=== PATIENT | female | born 1930 | race Caucasian/White ===

== ENCOUNTER 2017-05-24 11:23 | Emergency (ER) | payer MEDICARE, OTHER ==
--- NOTE | 2017-05-24 11:51 | ERPHSYRPT ---
- History of Present Illness Allergies/Adverse Reactions: influenza A (H1N1) virus vaccine m- [From influenza A (H1N1)] Allergy (Verified 01/20/15 13:57) influenza virus vaccine, specific [influenza virus vacc,specific] Allergy ( Verified 01/20/15 13:57) Home Medications: Glipizide 10 mg PO DAILY 03/21/14 [History] Simvastatin 40 mg [Zocor 40 mg] 40 mg PO DAILY 03/21/14 [History] Sitagliptin Phosphate [Januvia] 100 mg PO DAILY 03/21/14 [History] Aspirin 81 mg PO DAILY 01/20/15 [History] Benazepril HCl 20 mg PO DAILY 01/20/15 [History] Insulin Glargine [Lantus Insulin] 16 units SQ HS 01/20/15 [History] Isosorbide Mononitrate 30 mg [Imdur 30 MG] 30 mg PO DAILY 01/20/15 [History ] Metoprolol Succinate 25 mg Xl* [Toprol-Xl 25MG Tablets] 25 mg PO DAILY [History] Hx Tetanus, Diphtheria Vaccination/Date Given: No Hx Influenza Vaccination/Date Given: No Hx Pneumococcal Vaccination/Date Given: Yes - Past Medical History Pertinent Past Medical History: Yes Neurological History: No Pertinent History ENT History: No Pertinent History Cardiac History: Hypertension Respiratory History: No Pertinent History Endocrine Medical History: Diabetes Type II Musculoskeletal History: No Pertinent History GI Medical History: No Pertinent History History: No Pertinent History Psycho-Social History: No Pertinent History Female Reproductive Disorders: No Pertinent History - Past Surgical History Past Surgical History: Yes Neuro Surgical History: No Pertinent History Cardiac: No Pertinent History Respiratory: No Pertinent History Gastrointestinal: No Pertinent History Genitourinary: No Pertinent History Musculoskeletal: No Pertinent History Female Surgical History: Tubal Ligation - Social History Smoking Status: Former smoker Exposure to second hand smoke: No Drug Use: none Patient Lives Alone: No - Departure Referrals: TOMAS LICONA [Primary Care Provider] -
--- NOTE | 2017-05-24 11:58 | ERPHSYRPT ---
- History of Present Illness Time Seen by Provider: 05/24/17 11:53 Source: patient, family Exam Limitations: no limitations Patient Subjective Stated Complaint: pt here for lower back pain for 4 weeks worse today while rolling over in bed, has fallen twice in that time, she states she looses her balance. she does not use a cane or walker Triage Nursing Assessment: pt alert, arrives per wc, has redness to lower back, and brown/yellow bruising to right arm and left rib area, pt able to undress self with assistance Physician History: The patient is an 87-year-old female with her daughter complaining that she hurt her back 4 weeks ago while lifting up from a bent over position. The back hasn't been getting very much better over the last 4 weeks. For the last few days her back is been getting worse. Today she rolled over in bed and her low back was very painful. She has been having a hard time walking. She would not even walk to her daughter's house next door because of the pain. Walking to her daughter's house was something she used to be able to do without problems. She has fallen twice recently. She hasn't been eating as much is in the past. The daughter says that the patient is getting a little weaker. She denies any loss of in bowel or bladder. At times she will have pain shooting down the back of her right leg. She denies numbness or tingling. Her past medical history is significant for diabetes, hypertension, high cholesterol, chronic back pain, and sciatica. Timing/Duration: week(s) (4) Severity: severe Modifying Factors: Improves With: nothing Associated Symptoms: loss of appetite, weakness Allergies/Adverse Reactions: influenza A (H1N1) virus vaccine m- [From influenza A (H1N1)] Allergy (Verified 05/24/17 11:43) influenza virus vaccine, specific [influenza virus vacc,specific] Allergy ( Verified 05/24/17 11:43) Home Medications: Glipizide 10 mg PO DAILY 03/21/14 [History] Simvastatin 40 mg [Zocor 40 mg] 40 mg PO DAILY 03/21/14 [History] Aspirin 81 mg PO DAILY 01/20/15 [History] Benazepril HCl 20 mg PO DAILY 01/20/15 [History] Insulin Glargine [Lantus Insulin] 16 units SQ HS 01/20/15 [History] Isosorbide Mononitrate 30 mg [Imdur 30 MG] 30 mg PO DAILY 01/20/15 [History ] Metoprolol Succinate 25 mg Xl* [Toprol-Xl 25MG Tablets] 25 mg PO DAILY [History] Sitagliptin Phosphate [Januvia] 100 mg DAILY 05/24/17 [History] Hx Tetanus, Diphtheria Vaccination/Date Given: No Hx Influenza Vaccination/Date Given: No Hx Pneumococcal Vaccination/Date Given: Yes Immunizations Up to Date: Yes - Review of Systems Constitutional: Weakness Eyes: No Symptoms Ears, Nose, & Throat: No Symptoms Respiratory: No Cough, No Dyspnea Cardiac: No Chest Pain, No Edema, No Syncope Abdominal/Gastrointestinal: No Abdominal Pain, No Nausea, No Vomiting, No Diarrhea Genitourinary Symptoms: No Dysuria Musculoskeletal: Back Pain, Fall Skin: No Rash Neurological: No Dizziness, No Focal Weakness, No Sensory Changes Psychological: No Symptoms Endocrine: No Symptoms Hematologic/Lymphatic: No Symptoms Immunological/Allergic: No Symptoms All Other Systems: Reviewed and Negative - Past Medical History Pertinent Past Medical History: Yes Neurological History: No Pertinent History ENT History: No Pertinent History Cardiac History: Hypertension Respiratory History: No Pertinent History Endocrine Medical History: Diabetes Type II Musculoskeletal History: No Pertinent History GI Medical History: No Pertinent History History: No Pertinent History Psycho-Social History: No Pertinent History Female Reproductive Disorders: No Pertinent History - Past Surgical History Past Surgical History: Yes Neuro Surgical History: No Pertinent History Cardiac: No Pertinent History Respiratory: No Pertinent History Gastrointestinal: No Pertinent History Genitourinary: No Pertinent History Musculoskeletal: No Pertinent History Female Surgical History: Tubal Ligation - Social History Smoking Status: Former smoker Exposure to second hand smoke: No Drug Use: none Patient Lives Alone: Yes - Female History Hx Last Menstrual Period: post Hx Now: No - Nursing Vital Signs Nursing Vital Signs: Initial Vital Signs Temperature 97.3 F 05/24/17 11:34 Pulse Rate 61 05/24/17 11:34 Respiratory Rate 18 05/24/17 11:34 Blood Pressure 151/70 05/24/17 11:34 O2 Sat by Pulse Oximetry 100 05/24/17 11:34 Pain Scale Pain Intensity [Back] 8 Pain Intensity 0 - Physical Exam General Appearance: moderate distress Eye Exam: PERRL/EOMI, eyes nml inspection Ears, Nose, Throat Exam: normal ENT inspection, TMs normal, pharynx normal, moist mucous membranes Neck Exam: normal inspection, non-tender, supple, full range of motion Respiratory Exam: normal breath sounds, lungs clear, No respiratory distress Cardiovascular Exam: regular rate/rhythm, normal heart sounds, normal peripheral pulses Gastrointestinal/Abdomen Exam: soft, normal bowel sounds, No tenderness, No mass Pelvic Exam: not done Rectal Exam: not done Back Exam: vertebral tenderness, decreased range of motion, muscle spasm (right paraspinous) Extremity Exam: normal inspection, normal range of motion, pelvis stable Neurologic Exam: alert, oriented x 3, cooperative, normal mood/affect, nml cerebellar function, nml station & gait, sensation nml, No motor deficits Skin Exam: normal color, warm, dry, No rash Lymphatic Exam: No adenopathy SpO2 Interpretation: normal SpO2: 100 Oxygen Delivery: Room Air - Course EKG Interpreted by Me: RATE, Sinus Rhythm, Left [place] Deviation, NORMAL INTERVALS , NORMAL QRS, Other (Left anterior fascicular block; comp EKG 03/21/14) - CT Exams Lumbar Spine CT Interpretation: Negative, Tele-radiologist Report, No Subluxation, Other (no acute findings. scoliosis. degenerative changes. Per Dr Matamoros.) Ordered Tests: Active Orders 24 hr Category Date Time Status Therapy Manager STAT Care 05/24/17 13:03 Active Clean Catch Urine Specimen STAT Care 05/24/17 11:49 Active EKG-ER Only STAT Care 05/24/17 12:02 Active IV Insertion STAT Care 05/24/17 11:49 Active CHEST 2 VIEWS (PA AND LAT) Stat Exams 05/24/17 12:00 Taken LUMBAR SPINE W/O [CT] Stat Exams 05/24/17 12:02 Taken CBC W DIFF Stat Lab 05/24/17 12:05 Completed CMP Stat Lab 05/24/17 12:05 Completed CULTURE,URINE Stat Lab 05/24/17 12:00 Received TROPONIN Q3H Lab 05/24/17 12:05 Completed TROPONIN Q3H Lab 05/24/17 15:00 Ordered TROPONIN Q3H Lab 05/24/17 18:00 Ordered TROPONIN Q3H Lab 05/24/17 21:00 Ordered TROPONIN Q3H Lab 05/25/17 00:00 Ordered UA W/ MICROSCOPIC Stat Lab 05/24/17 12:00 Completed Medication Summary Generic Name Dose Route Start Last Admin Trade Name Carloz PRN Reason Stop Dose Admin Sodium Chloride 1,000 mls @ 100 mls/hr 05/24/17 12:00 05/24/17 12:15 Sodium Chloride 0.9% 1000 Ml IV 06/23/17 11:59 100 mls/hr .Q10H SURAJ Administration Discontinued Medications Generic Name Dose Route Start Last Admin Trade Name Carloz PRN Reason Stop Dose Admin Morphine Sulfate 4 mg 05/24/17 11:59 05/24/17 12:14 Morphine Sulfate 4 Mg Inj IV 05/24/17 12:00 4 mg STAT ONE Administration Morphine Sulfate Confirm 05/24/17 12:09 Morphine Sulfate 4 Mg Inj Administered 05/24/17 12:10 Dose 4 mg .ROUTE .STK-MED ONE Ondansetron HCl 4 mg 05/24/17 11:59 05/24/17 12:15 Zofran 4 Mg/2 Ml Vial IV 05/24/17 12:00 4 mg STAT ONE Administration Ondansetron HCl Confirm 05/24/17 12:09 Zofran 4 Mg/2 Ml Vial Administered 05/24/17 12:10 Dose 4 mg .ROUTE .STK-MED ONE Lab/Rad Data: Laboratory Result Diagrams 05/24/17 12:05 05/24/17 12:05 Laboratory Results 05/24/17 05/24/17 05/24/17 Range/Units 12:05 12:05 12:05 WBC 8.6 (4.0-10.5) K/mm3 RBC 4.03 L (4.1-5.4) M/mm3 Hgb 12.3 (12.0-16.0) gm/dl Hct 35.8 (35-47) % MCV 88.8 (78-100) fl MCH 30.5 (26-32) pg MCHC 34.4 (32-36) g/dl RDW 13.2 (11.5-14.0) % Plt Count 205 (150-450) K/mm3 MPV 11.0 H (6-9.5) fl Gran % 80.1 H (36.0-66.0) % Lymphocytes % 14.1 L (24.0-44.0) % Monocytes % 5.5 (0.0-12.0) % Eosinophils % 0.2 (0.00-5.0) % Basophils % 0.1 (0.0-0.4) % Basophils # 0.01 (0-0.4) Sodium 136 (136-145) mEq/L Potassium 4.2 (3.5-5.1) mEq/L Chloride 100 (98-107) mEq/L Carbon Dioxide 22.9 (21-32) mEq/L Anion Gap 17.0 H (5-15) MEQ/L BUN 29 H (9-20) mg/dL Creatinine 1.59 H (0.55-1.30) mg/dl Estimated GFR 32 ML/MIN Glucose 169 H (70-110) MG/DL Calcium 9.5 (8.5-10.1) mg/dL Total Bilirubin 0.60 (0.2-1.0) mg/dL AST 16 (15-37) U/L ALT 16 (12-78) U/L Alkaline Phosphatase 95 (46-116) U/L Troponin I < 0.017 (0.000-0.056) ng/ml Serum Total Protein 7.4 (6.4-8.2) gm/dL Albumin 3.8 (3.4-5.0) g/dL Ur Collection Type Urine Color (YELLOW) Urine Appearance (CLEAR) Urine pH (5-6) Ur Specific [place] (1.005-1.025) Urine Protein (Negative) Urine Ketones (NEGATIVE) Urine Blood (0-5) Shayne/ul Urine Nitrite (NEGATIVE) Urine Bilirubin (NEGATIVE) Urine Urobilinogen (0-1) mg/dL Ur Leukocyte Esterase (NEGATIVE) Urine Microscopic RBC (0-2) /HPF Urine Microscopic WBC (0-5) /HPF Ur Epithelial Cells (FEW) /HPF Urine Bacteria (NEGATIVE) /HPF Hyaline Casts (0-2) /LPF Urine Mucus (NEGATIVE) /HPF Urine Culture Reflexed (NO) Urine Glucose (NEGATIVE) mg/dL Specimen Received 05/24/17 Range/Units 12:00 WBC (4.0-10.5) K/mm3 RBC (4.1-5.4) M/mm3 Hgb (12.0-16.0) gm/dl Hct (35-47) % MCV (78-100) fl MCH (26-32) pg MCHC (32-36) g/dl RDW (11.5-14.0) % Plt Count (150-450) K/mm3 MPV (6-9.5) fl Gran % (36.0-66.0) % Lymphocytes % (24.0-44.0) % Monocytes % (0.0-12.0) % Eosinophils % (0.00-5.0) % Basophils % (0.0-0.4) % Basophils # (0-0.4) Sodium (136-145) mEq/L Potassium (3.5-5.1) mEq/L Chloride (98-107) mEq/L Carbon Dioxide (21-32) mEq/L Anion Gap (5-15) MEQ/L BUN (9-20) mg/dL Creatinine (0.55-1.30) mg/dl Estimated GFR ML/MIN Glucose (70-110) MG/DL Calcium (8.5-10.1) mg/dL Total Bilirubin (0.2-1.0) mg/dL AST (15-37) U/L ALT (12-78) U/L Alkaline Phosphatase (46-116) U/L Troponin I (0.000-0.056) ng/ml Serum Total Protein (6.4-8.2) gm/dL Albumin (3.4-5.0) g/dL Ur Collection Type CLEAN CATCH Urine Color YELLOW (YELLOW) Urine Appearance HAZY (CLEAR) Urine pH 5.0 (5-6) Ur Specific [place] 1.015 (1.005-1.025) Urine Protein 100 (Negative) Urine Ketones NEGATIVE (NEGATIVE) Urine Blood 5-10 (0-5) Shayne/ul Urine Nitrite NEGATIVE (NEGATIVE) Urine Bilirubin NEGATIVE (NEGATIVE) Urine Urobilinogen NORMAL (0-1) mg/dL Ur Leukocyte Esterase TRACE (NEGATIVE) Urine Microscopic RBC 0-2 (0-2) /HPF Urine Microscopic WBC 2-5 (0-5) /HPF Ur Epithelial Cells MODERATE (FEW) /HPF Urine Bacteria FEW (NEGATIVE) /HPF Hyaline Casts 2-5 (0-2) /LPF Urine Mucus SLIGHT (NEGATIVE) /HPF Urine Culture Reflexed YES (NO) Urine Glucose NEGATIVE (NEGATIVE) mg/dL Specimen Received 05/24/17 1200 - Progress Progress: improved Counseled pt/family regarding: lab results, diagnosis, need for follow-up, rad results - Departure Time of Disposition: 14:18 Departure Disposition: Home Clinical Impression: Arthritis, lumbar spine, Scoliosis Condition: Stable Critical Care Time: No Referrals: TOMAS LICONA [Primary Care Provider] - Additional Instructions: You have back spasms and back pain caused by scoliosis and arthritis of your lumbar spine. You were given morphine 4 mg, Zofran 4 mg, and fluids by IV in the ER. Take Flexeril 5 mg every 8 hours as needed. Apply ice to the area as needed. Follow-up on Friday with Dr. Licona for further evaluation. Prescriptions: Cyclobenzaprine HCl [Flexeril] 5 mg PO Q8H PRN PRN #10 tablet PRN Reason: Pain
[2017-05-24] MEDS ORDERED: MORPHINE SULFATE 4 MG INJ IV ONE (11:59)
[2017-05-24] MEDS ORDERED: Zofran 4 MG/2 ML VIAL IV ONE (11:59)
[2017-05-24] MEDS ORDERED: Sodium Chloride 0.9% 1000 ML 1,000 ML IV SCH (12:00)
[2017-05-24] MEDS ORDERED: Sodium Chloride 0.9% 1000 ML 1,000 ML ONE (12:09)
[2017-05-24] MEDS ORDERED: Zofran 4 MG/2 ML VIAL ONE (12:09)
[2017-05-24] MEDS ORDERED: MORPHINE SULFATE 4 MG INJ ONE (12:09)
[2017-05-24 12:19] LABS: BASOPHIL % 0.1 % (0.0-0.4); Basophil (Absolute #) 0.01 (0-0.4); Eosinophil % 0.2 % (0.00-5.0); Eosinophil (Absolute #) 0.02 (0-0.5); Granulocyte Absolute (ANC) 6.88 (1.4-6.9); Granulocytes % 80.1 % (36.0-66.0); Hematocrit 35.8 % (35-47); Hemoglobin 12.3 gm/dl (12.0-16.0); Lymphocyte (Absolute #) 1.21 (1.0-4.6); Lymphocytes % 14.1 % (24.0-44.0); Mean Cell Volume 88.8 fl (78-100); Mean Corpuscular Hemoglobin 30.5 pg (26-32); Mean Corpuscular Hgb Concent. 34.4 g/dl (32-36); Monocyte (Absolute #) 0.47 (0.0-1.3); Monocytes % 5.5 % (0.0-12.0); Platelet Count 205 K/mm3 (150-450); Red Blood Count 4.03 M/mm3 (4.1-5.4); Red Cell Distribution Width 13.2 % (11.5-14.0); White Blood Count 8.6 K/mm3 (4.0-10.5)
[2017-05-24 12:41] LABS: ALBUMIN 3.8 g/dL (3.4-5.0); BILIRUBIN,TOTAL 0.6 mg/dL (0.2-1.0); Calcium 9.5 mg/dL (8.5-10.1); Carbon Dioxide 22.9 mEq/L (21-32); Creatinine 1 1.59 mg/dl (0.55-1.30); Potassium 4.2 mEq/L (3.5-5.1); Total Protein 7.4 gm/dL (6.4-8.2)
[2017-05-24 12:46] LABS: Appearance HAZY (CLEAR); Bacteria FEW /HPF (NEGATIVE); Bilirubin NEGATIVE (NEGATIVE); Epithelial Cells MODERATE /HPF (FEW); Glucose NEGATIVE (NEGATIVE); Ketones NEGATIVE (NEGATIVE); Leukocyte Esterase TRACE (NEGATIVE); Mucus SLIGHT /HPF (NEGATIVE); Nitrite NEGATIVE (NEGATIVE); Protein,Urine Dip 100 (Negative); Specific Gravity 1.015 (1.005-1.025); Urobilinogen NORMAL mg/dL (0-1)
[2017-05-24 14:40] VITALS: BP 154/61; PULSE 58; O2SAT 98
--- NOTE | 2017-05-24 21:21 | XRAY ---
Indication: Back pain. Weakness. Comparison: March 21, 2014. PA/lateral chest clear with stable incidental left mid lung calcified granuloma. Heart and mediastinal structures stable and within normal limits. Bony thorax intact again with mild osteopenia. Impression: Nonacute chest with chronic features.
--- NOTE | 2017-05-24 21:42 | XRAY ---
Indication: Low back pain. Multiple falls. Multiple contiguous axial images obtained through the lumbar spine. Sagittal and coronal reformatted images obtained. Comparison: January 20, 2015. Stable age-related osteopenia. New nondisplaced L1 vertebral body fracture with approximately 25% height loss. No spinal canal or foraminal encroachment. Stable mild to moderate multilevel degenerative broad-based disc bulge and vacuum disc phenomena, greatest at the L5-S1 levels where there is bilateral foraminal stenosis. No large disc herniation or canal stenosis. Sagittal and coronal reformatted images demonstrates stable minimal dextroscoliosis and L1-S1 degenerative disc space narrowing/loss. Stable remote superior endplate fracture of L2 and L3 with approximately 25% height loss. Inferior L2 and superior L5 Schmorl nodes. No subluxation. Visualized noncontrasted soft tissues demonstrates stable moderate moderate aortoiliac calcifications, 2.5 cm left adrenal adenoma, and colonic diverticulosis. Impression: 1. New L1 vertebral body acute fracture as detailed. 2. Stable osteopenia, multilevel degenerative spondylosis, and remote L2/ L3 endplate fractures. 3. Stable L2 and L5 Schmorl node. Scoliosis. 4. Stable left adrenal adenoma, colonic diverticulosis, and arteriosclerotic disease. Comment: Preliminary interpretation was made by [facility]. L1 fracture not reported. Telephone report given to Dr. Rivera at 0940 hrs. on May 24, 2017. CT DI 35.99
== END 2017-05-24 14:45 | disposition home or self-care (01) ==
LOC: ED 11:23
DX: M46.96 Unspecified inflammatory spondylopathy, lumbar region (principal); M41.9 Scoliosis, unspecified; M54.5 Low back pain
CPT/HCPCS: 36000; 36415; 71046; 72131; 80053; 81000; 84484; 85025; 87086; 93005; 93041; 96360; 96361; 96374; 96375; 99284; 99285; J2270; J2405